=== PATIENT | female | born 1985 ===

== ENCOUNTER → 2021-03-02 16:00 | Observation (INO) ==
[2021-03-02 11:34] LABS: Bacteria,Urine Few per hpf (None-Few); Bilirubin,Urine Negative (Negative); Blood,Urine Small (Negative); Clarity,Urine Turbid (Clear); Color,Urine Yellow (Yellow); Glucose,Urine (UA) Normal (Normal); Ketones,Urine Negative (Negative); Leukocyte Esterase,Urine Large (Negative); Mucus,Urine Many per lpf (None-Few); Nitrite,Urine Negative (Negative); Protein,Urine 30 mg/dL (Neg-Trace); Specific Gravity,Urine 1.026 (1.010-1.025); Squamous Epithelial Cell,Urine Moderate per hpf (None-Few); Urobilinogen,Urine Normal (Normal); WBC,Urine 15-30 per hpf (0-3)
[2021-03-02 12:40] LABS: Basophils % 0.3 %; Eosinophils # 0.2 K/mcL (0.0-0.6); Hematocrit 39.4 % (35.3-44.9); Hemoglobin 13.2 g/dL (11.5-15.4); Immature Granulocytes % 1.2 % (0-4); Lymphocytes # 2.8 K/mcL (0.6-4.6); Mean Corpuscular HGB Conc 33.5 g/dL (31.6-35.5); Mean Corpuscular Volume 95.6 fL (83.0-100.0); Mean Platelet Volume 10.3 fL (9.4-12.4); Monocytes # 1.3 K/mcL (0.0-1.3); Monocytes % 8.3 %; Neutrophils # 11.3 K/mcL (1.6-8.9); Platelet Count 297 K/mcL (140-400); Red Blood Count 4.12 M/mcL (3.82-4.97); Red Cell Distribution Width 13.8 % (11.5-14.5); Segmented Neutrophils % 71.2 %; White Blood Count 15.8 K/mcL (4.3-11.1)
[2021-03-02 13:43] LABS: Candida DNA Not Detected (Not Detect); Gardnerella DNA DETECTED (Not Detect); Trichomonas DNA Not Detected (Not Detect)
[~2021-03-02 16:00] MED LIST: Betamethasone Acet/SodPhos 30 MG/5 ML VIAL IM SCH; Ondansetron 4 MG/2 ML VIAL IVP PRN; Ondansetron 4 MG/2 ML VIAL ONE; Ringers Solution, Lactated 1,000 ML IVC ONE; Ringers Solution, Lactated 1,000 ML IVC SCH; Ringers Solution, Lactated 1,000 ML ONE; Terbutaline 1 MG/ML VIAL SQ ONE
== END | disposition home or self-care (01) ==
LOC: 1NENULAB
PROVIDERS: ADMIT Advanced Practice Midwife; ATTEND Advanced Practice Midwife

== ENCOUNTER → 2021-03-03 02:04 | Observation (INO) ==
[2021-03-02 21:12] LABS: Basophils % 0.1 %; Immature Granulocytes % 0.9 % (0-4); Lymphocytes # 0.9 K/mcL (0.6-4.6); Lymphocytes % 5.2 %; Mean Corpuscular HGB Conc 34.3 g/dL (31.6-35.5); Mean Corpuscular Hemoglobin 32.6 pg (28.0-33.3); Mean Corpuscular Volume 95.1 fL (83.0-100.0); Mean Platelet Volume 10.7 fL (9.4-12.4); Monocytes # 0.2 K/mcL (0.0-1.3); Monocytes % 1.4 %; Neutrophils # 15.3 K/mcL (1.6-8.9); Platelet Count 280 K/mcL (140-400); Red Blood Count 3.68 M/mcL (3.82-4.97); Segmented Neutrophils % 92.4 %; White Blood Count 16.6 K/mcL (4.3-11.1)
[~2021-03-03 02:04] MED LIST changes: +*HR* FentaNYL (PF) 100 MCG/2 ML VIAL ONE; +*HR* Meperidine 25 MG/ML SYRINGE IM PRN; +*HR* Morphine Sulfate/PF 10 MG/10 ML AMPUL ONE; +*HR* Promethazine 25 MG/ML VIAL IM ONE; +Acetaminophen IV 1,000 MG/100 ML BAG IVPB ONE; -Betamethasone Acet/SodPhos 30 MG/5 ML VIAL IM SCH; +EPHEDrine 50 MG/ML VIAL ONE; +Ketorolac 30 MG/ML VIAL ONE; +NIFEdipine Immed Rel 10 MG CAPSULE PO ONE; -Ondansetron 4 MG/2 ML VIAL IVP PRN; -Ringers Solution, Lactated 1,000 ML IVC ONE; -Terbutaline 1 MG/ML VIAL SQ ONE; +metroNIDAZOLE 500 MG TABLET PO SCH
== END | disposition home or self-care (01) ==
LOC: 1NENULAB
PROVIDERS: ADMIT Advanced Practice Midwife; ATTEND Advanced Practice Midwife

== ENCOUNTER 2021-03-03 04:36 | Inpatient (IN) ==
[~2021-03-03 04:36] MED LIST changes: -*HR* FentaNYL (PF) 100 MCG/2 ML VIAL ONE; -*HR* Meperidine 25 MG/ML SYRINGE IM PRN; -*HR* Morphine Sulfate/PF 10 MG/10 ML AMPUL ONE; -*HR* Promethazine 25 MG/ML VIAL IM ONE; -Acetaminophen IV 1,000 MG/100 ML BAG IVPB ONE; +Azithromycin 500 MG in 0.9 % Sodium Chloride 250 ML IVPB PRN; -EPHEDrine 50 MG/ML VIAL ONE; +Famotidine 20 MG/2 ML VIAL IVP PRN; -Ketorolac 30 MG/ML VIAL ONE; +Metoclopramide 10 MG/2 ML VIAL IVP PRN; -NIFEdipine Immed Rel 10 MG CAPSULE PO ONE; +Naloxone 0.4 MG/ML INJ IVP PRN; +Ondansetron 4 MG/2 ML VIAL IVP PRN; -Ondansetron 4 MG/2 ML VIAL ONE; -Ringers Solution, Lactated 1,000 ML IVC SCH; -metroNIDAZOLE 500 MG TABLET PO SCH
[2021-03-03] MEDS ORDERED: Ringers Solution, Lactated 1,000 ML IVC SCH (04:45)
[2021-03-03] MEDS ORDERED: CeFAZolin 2,000MG/50ML DUPLEX 2,000 MG/50 ML BAG IVPB ONE (04:50)
[2021-03-03 05:02] LABS: Amphetamine Screen,Urine Negative ng/mL (Cutoff=1000); Barbiturate Screen,Urine Negative ng/mL (Cutoff=200); Benzodiazepines Screen,Urine Negative ng/mL (Cutoff=200); Cannabinoid Screen,Urine Positive ng/mL (Cutoff = 50); Cocaine Screen,Urine Negative ng/mL (Cutoff= 300); Opiate Screen,Urine Negative ng/mL (Cutoff=300); Phencyclidine Screen,Urine Negative ng/mL (Cutoff=25)
[2021-03-03 05:15] LABS: Basophils % 0.1 %; Hematocrit 39.7 % (35.3-44.9); Immature Granulocytes % 1.2 % (0-4); Lymphocytes # 2.2 K/mcL (0.6-4.6); Lymphocytes % 9.9 %; Mean Corpuscular HGB Conc 35.3 g/dL (31.6-35.5); Mean Corpuscular Hemoglobin 33.1 pg (28.0-33.3); Mean Corpuscular Volume 93.9 fL (83.0-100.0); Mean Platelet Volume 10.4 fL (9.4-12.4); Monocytes # 1.1 K/mcL (0.0-1.3); Monocytes % 4.9 %; Neutrophils # 18.8 K/mcL (1.6-8.9); Platelet Count 308 K/mcL (140-400); Red Blood Count 4.23 M/mcL (3.82-4.97); Red Cell Distribution Width 14.1 % (11.5-14.5); Segmented Neutrophils % 83.9 %; White Blood Count 22.4 K/mcL (4.3-11.1)
[2021-03-03] MEDS ORDERED: *HR* HYDROmorphone PF 0.5 MG/0.5 ML SYRINGE IVP PRN (05:35)
[2021-03-03] MEDS ORDERED: *HR* OxyCODONE Immed Rel 5 MG TABLET PO PRN (05:35)
[2021-03-03] MEDS ORDERED: Ondansetron 4 MG/2 ML VIAL IVP PRN ×2 (05:35→09:39)
[2021-03-03] MEDS ORDERED: Oxytocin 20 units/ LR 1000 mL 20 UNIT/1,000 ML BAG IVC ONE (08:08)
[2021-03-03] MEDS ORDERED: Metoclopramide 10 MG/2 ML VIAL IVP PRN (09:39)
[2021-03-03] MEDS ORDERED: Oxytocin 20 units/ LR 1000 mL 20 UNIT/1,000 ML BAG IVC SCH (09:39)
[2021-03-03] MEDS: Acetaminophen 325 MG TABLET PO SCH ×2 (11:21→18:54)
[2021-03-03] MEDS: Simethicone 80 MG TAB.CHEW PO SCH ×3 (11:22→21:17)
[2021-03-03] MEDS: cephALEXin 500 MG CAPSULE PO SCH ×3 (11:22→21:18)
[2021-03-03] MEDS: metroNIDAZOLE 500 MG TABLET PO SCH ×3 (11:22→21:18)
[2021-03-03] MEDS: Prenatal Vit/FA 1 EACH TABLET PO SCH (11:22)
[2021-03-03] MEDS ORDERED: Ketorolac 30 MG/ML VIAL IVP ONE (12:00)
[2021-03-03] MEDS: Ibuprofen 600 MG TABLET PO SCH (18:53)
[2021-03-03] MEDS: *HR* OxyCODONE Immed Rel 5 MG TABLET PO PRN (21:18)
[2021-03-04] MEDS: Acetaminophen 325 MG TABLET PO SCH (03:38)
[2021-03-04] MEDS: Ibuprofen 600 MG TABLET PO SCH (03:39)
[2021-03-04] MEDS: *HR* OxyCODONE Immed Rel 5 MG TABLET PO PRN (03:39)
[2021-03-04 05:07] LABS: Basophils % 0.1 %; Eosinophils # 0.1 K/mcL (0.0-0.6); Eosinophils % 0.3 %; Hematocrit 34.4 % (35.3-44.9); Immature Granulocytes % 1.1 % (0-4); Lymphocytes # 2.9 K/mcL (0.6-4.6); Lymphocytes % 13.8 %; Mean Corpuscular HGB Conc 33.4 g/dL (31.6-35.5); Mean Corpuscular Hemoglobin 32.5 pg (28.0-33.3); Mean Corpuscular Volume 97.2 fL (83.0-100.0); Mean Platelet Volume 10.7 fL (9.4-12.4); Monocytes % 9.5 %; Neutrophils # 15.9 K/mcL (1.6-8.9); Platelet Count 268 K/mcL (140-400); Red Blood Count 3.54 M/mcL (3.82-4.97); Red Cell Distribution Width 14.2 % (11.5-14.5); Segmented Neutrophils % 75.2 %; White Blood Count 21.2 K/mcL (4.3-11.1)
[2021-03-04 05:10] LABS: Hemoglobin 11.5 g/dL (11.5-15.4)
[2021-03-04 08:11] VITALS: BP 133/82
[2021-03-04] MEDS: cephALEXin 500 MG CAPSULE PO SCH (09:01)
[2021-03-04] MEDS: metroNIDAZOLE 500 MG TABLET PO SCH (09:01)
[2021-03-04] MEDS: Simethicone 80 MG TAB.CHEW PO SCH (09:01)
[2021-03-04] MEDS: Prenatal Vit/FA 1 EACH TABLET PO SCH (09:01)
== END 2021-03-04 10:50 | disposition home or self-care (01) | DRG 539 ==
LOC: 1NENULAB → 1NENUOBS 09:41
PROVIDERS: ADMIT Obstetrics & Gynecology; ATTEND Obstetrics & Gynecology